=== PATIENT | female | born 1975 ===

== ENCOUNTER 2017-11-13 16:01 | Observation (INO) | payer SELFPAY ==
[2017-11-12 06:35] VITALS: BMI 23.3
[2017-11-13] MEDS ORDERED: Succinylcholine Chloride 20 mg/ml Syr (5 ml) IV ONE (16:28)
[2017-11-13] MEDS ORDERED: Rocuronium 10 mg/ml (5 ml) ONE (16:28)
[2017-11-13] MEDS ORDERED: Propofol 10 mg/ml Inj (20 ML) ONE (16:28)
[2017-11-13] MEDS ORDERED: Midazolam 2 MG/2 ML VIAL ONE (16:28)
[2017-11-13] MEDS ORDERED: Piperacillin/Tazobact 3.375 gm 100 ML IVPB ONE (16:45)
[2017-11-13] MEDS ORDERED: Neostigmine Methylsulfate 3mg/3ml Syringe IV ONE (17:39)
[2017-11-13] MEDS ORDERED: Morphine 4 MG/ML VIAL ONE ×2 (17:54→17:58)
[2017-11-13] MEDS ORDERED: HYDROmorphone 0.5 mg/0.5 ml ISec IVP PRN ×2 (18:08→20:00)
--- NOTE | 2017-11-13 18:09 | PCM.SURG1 ---
Surgeon's Initial Post Op Note - Surgeon's Notes Surgeon: Dr. Garcia Pressure Vessel Inspector: Dr. Fofana PGY3, Dr. Hdez PGY1 Type of Anesthesia: General Endo Pre-Operative Diagnosis: Acute Cholecystitis Operative Findings: See operative dictation Post-Operative Diagnosis: Acute cholecystitis Operation Performed: Laparoscopic Cholecystectomy Specimen/Specimens Removed: Gallbladder Estimated Blood Loss: EBL {In ML}: 10 Blood Products Given: N/A Drains Used: No Drains Post-Op Condition: Good Date of Surgery/Procedure: 11/13/17 Time of Surgery/Procedure: 18:09
[2017-11-13] MEDS: Sodium Chloride 0.9% 1,000 ML IV SCH (20:09)
[2017-11-13 20:45] VITALS: RESP 20
[2017-11-14 04:49] VITALS: O2SAT 94
[2017-11-14] MEDS: Sodium Chloride 0.9% 1,000 ML IV SCH (05:17)
--- NOTE | 2017-11-14 08:20 | CP.PCM.PN ---
Subjective - Date & Time of Evaluation Date of Evaluation: 11/14/17 Time of Evaluation: 08:16 - Subjective Subjective: General Surgery Progress Note for Dr. Garcia This 42F was seen and evaluated this Am at bedside no acute events overnight. Tolerating PO, denies chest pain, SOB , nausea vomiting diarrhea. No BM or flatus yet. Requesting to be discharged home. Objective - Vital Signs/Intake and Output Vital Signs (last 24 hours): Temp Pulse Resp BP Pulse Ox 98.4 F 61 20 91/50 L 94 L 11/14/17 04:00 11/14/17 04:00 11/14/17 04:00 11/14/17 04:00 11/14/17 04:00 - Medications Medications: Current Medications Hydromorphone HCl (Dilaudid) 0.5 mg IVP Q6H PRN PRN Reason: Pain, moderate (4-7) Sodium Chloride (Sodium Chloride 0.9%) 1,000 mls @ 100 mls/hr IV .Q10H ISABELLA Last Admin: 11/14/17 05:17 Dose: 100 mls/hr Ondansetron HCl (Zofran Inj) 4 mg IVP Q6 PRN PRN Reason: Nausea/Vomiting - Constitutional Appears: Non-toxic, No Acute Distress - Head Exam Head Exam: ATRAUMATIC, NORMOCEPHALIC - Eye Exam Eye Exam: EOMI, Normal appearance - ENT Exam ENT Exam: Mucous Membranes Moist - Respiratory Exam Respiratory Exam: NORMAL BREATHING PATTERN - Cardiovascular Exam Cardiovascular Exam: +S1, +S2 - GI/Abdominal Exam GI & Abdominal Exam: Soft. absent: Distended, Firm, Guarding, Rigid Additional comments: Dressings clean dry and intact appropriately tender - Neurological Exam Neurological Exam: Alert, Awake - Psychiatric Exam Psychiatric exam: Normal Affect, Normal Mood - Skin Skin Exam: Dry, Intact, Warm Assessment and Plan - Assessment and Plan (Free Text) Assessment: 42F POD#1 s/p Laparoscopic cholecystectomy and doing well Clear for D/C home. No diet restrictions Percocet for pain PRN Call office for followup. D/W Dr. Fofana PGY2
[2017-11-14 09:49] VITALS: BP 95/59; PULSE 71; TEMP 98.5
--- NOTE | 2017-11-14 22:07 | OP ---
PROCEDURE DATE: 11/13/2017 SURGEON: Alfonzo Garcia MD ASSISTANTS: Joaquin Fofana DO and Dr. Hdez ANESTHESIA: General. ANESTHESIOLOGIST: Miles Mathews MD PREOPERATIVE DIAGNOSIS: Acute cholecystitis. POSTOPERATIVE DIAGNOSIS: Acute cholecystitis. PROCEDURE: Laparoscopic cholecystectomy. DESCRIPTION OF OPERATION: With the patient in the supine position under adequate general anesthesia, the abdomen was prepped and draped in the usual sterile manner. The patient had a long midline incision from two previous surgeries, and a midline skin incision was made below the umbilicus within the old scar and taken down through the subcutaneous tissue. All suture material was cut, and the fascia incised to expose the peritoneum. The peritoneum was elevated and incised to enter the peritoneal cavity. The peritoneal surface was cleared up towards the right upper quadrant, checked with the laparoscope, and a 12-mm Zachary catheter was placed under direct vision. The Zachary was sutured to the fascia with 0 Vicryl sutures. Pneumoperitoneum was then instilled to 15 cm water pressure of CO2, and under direct vision, additional trocars were inserted in the epigastrium and right costal margin. Inspection of the abdomen via the epigastric port revealed omental adhesions only to the area of the lower midline, and the right upper quadrant was essentially clear of adhesions. The gallbladder was identified. It was soft but appeared edematous and recently inflamed. The gallbladder fundus was grasped and elevated. The infundibulum was grasped and retracted laterally. The cystic duct was identified and dissected, cleared of overlying fatty and inflammatory material, and cleared down towards the junction of the common bile duct. The cystic artery was similarly identified. An anterior branch was triply clipped and divided to allow better visualization of the cystic duct, and the cystic duct was then triply clipped and divided. The cystic artery was then triply clipped and divided, and the gallbladder was dissected free of liver bed using electrocautery. The liver bed was inspected for hemostasis and the dissection was completed. The gallbladder was placed in a specimen retrieval bag and removed via the umbilical port site. The right upper quadrant was irrigated and suctioned. The pneumoperitoneum was released and the trocars were removed. The umbilical incision was closed with [id number] fascial sutures of 0 Vicryl. All incisions were closed with ravi. Dry sterile dressings were applied. The patient tolerated the procedure well and transferred to recovery room in stable condition. Estimated blood loss for the procedure was 10 mL. Alfonzo Garcia MD MASHA
== END 2017-11-14 15:30 | disposition home or self-care (01) ==
LOC: C.OPSURG 16:01 → C.6T 18:10 → INTOOBSV 18:10
PROVIDERS: ADMIT Specialist; ATTEND Specialist
DX: K80.12 Calculus of gallbladder with acute and chronic cholecystitis without obstruction (principal)
CPT/HCPCS: 47562; 88304; G0378; J1100; J1170; J1885; J2001; J2250; J2270; J2405; J2543; J2704; J2710; J2765; J3010; J7030

== ENCOUNTER 2017-11-30 12:05 | Emergency (ER) | payer SELFPAY ==
[2017-11-30 12:16] VITALS: BMI 20.2
[2017-11-30 12:22] VITALS: BP 106/74; PULSE 75; RESP 18; TEMP 98.4; O2SAT 96
--- NOTE | 2017-11-30 13:03 | C.PDOC ---
History Of Present Illness 42 y/o female s/p cholecystectomy 2 weeks ago presents to ED with concerns of right upper abdomen incision infected. Patient states she has noted drainage from wound and currently denies fever, abdominal pain, foul smell or any other complaints at this time. Pt is scheduled for follow up and staple removal by dr rivera on this thursday Time Seen by Provider: 11/30/17 12:33 Chief Complaint (Nursing): Wound Check History Per: Patient History/Exam Limitations: no limitations Onset/Duration Of Symptoms: Days Ago Current Symptoms Are (Timing): Still Present Past Medical History Reviewed: Historical Data, Nursing Documentation, Vital Signs Vital Signs: Last Vital Signs Temp 98.4 F 11/30/17 12:16 Pulse 75 11/30/17 12:16 Resp 18 11/30/17 12:16 BP 106/74 11/30/17 12:16 Pulse Ox 96 11/30/17 13:41 - Medical History PMH: No Chronic Diseases Surgical History: Cholecystectomy Family History: States: No Known Family Hx - Social History Hx Alcohol Use: No Hx Substance Use: No - Immunization History Hx Tetanus Toxoid Vaccination: No Hx Influenza Vaccination: No Hx Pneumococcal Vaccination: No Review Of Systems Constitutional: Negative for: Fever, Chills Gastrointestinal: Negative for: Nausea, Vomiting Skin: Positive for: Other (incision draining). Negative for: Rash Neurological: Negative for: Weakness, Numbness Physical Exam - Physical Exam Appears: Non-toxic, No Acute Distress Skin: Warm, Dry, No Rash Head: Atraumatic, Normacephalic Eye(s): bilateral: Normal Inspection Oral Mucosa: Moist Gastrointestinal/Abdominal: Soft, No Guarding, No Rebound, Other (healing incision to RUQ with dry scab. No drainage, no fluctuant mass, No surrounding erythema or warmth.) Extremity: Normal ROM, Capillary Refill (<2 seconds), No Deformity Neurological/Psych: Oriented x3, Normal Speech, Normal Cognition Gait: Steady ED Course And Treatment O2 Sat by Pulse Oximetry: 96 (RA) Pulse Ox Interpretation: Normal Progress Note: Patient with stable vitals appears well, no signs of acute distress. Wound appears in good healing stage. Pt was instructed in proper wound care and advised to apply antibacteral oint. Patient is discharged and instructed to keep appt with surgeon as scheduled for this upcoming thursday. Disposition Counseled Patient/Family Regarding: Diagnosis, Need For Followup, Rx Given - Disposition Referrals: [facility] [Outside] Disposition: HOME/ ROUTINE Disposition Time: 13:00 Condition: STABLE Additional Instructions: Clean wound with mild soap and water Apply antibacterial ointment to area Take meds as directed Return to ER if worse Instructions: Wound Care (DC) Forms: [employer] (Portuguese) - Clinical Impression Clinical Impression: Encounter for wound care - PA / SCRUFF WORKER / Resident Statement MD/DO has reviewed & agrees with the documentation as recorded. - Scribe Statement The provider has reviewed the documentation as recorded by the Scribe Dayanna Lacy All medical record entries made by the Corona were at my direction and personally dictated by me. I have reviewed the chart and agree that the record accurately reflects my personal performance of the history, physical exam, medical decision making, and the department course for this patient. I have also personally directed, reviewed, and agree with the discharge instructions and disposition.
== END 2017-11-30 13:18 | disposition home or self-care (01) ==
LOC: C.ER 12:05
DX: Z48.89 Encounter for other specified surgical aftercare (principal)